=== PATIENT | female | born 2000 | race Caucasian/White ===

== ENCOUNTER 2020-12-16 00:40 | Emergency (ER) | payer OTHER ==
[2020-12-16 03:00] LABS: HEMOGLOBIN 11.8 gm/dl (12.3-15.3); RED BLOOD COUNT 4.09 M/UL (4.00-5.10); WHITE BLOOD COUNT 12.1 K/UL (4.5-11.0)
[2020-12-16 03:15] LABS: BUN/CREATININE RATIO 16 (0-10)
[2020-12-16] MEDS ORDERED: DULCOLAX5 MG PO (05:57)
[2020-12-16] MEDS ORDERED: AUGMENTIN 875-1 EACH PO (05:57)
[2020-12-16] MEDS ORDERED: FLAGYL500 MG PO (05:57)
== END 2020-12-16 06:40 | disposition home or self-care (01) ==
LOC: ER1 00:40
PROVIDERS: Physician Assistant
DX: K52.9 Noninfective gastroenteritis and colitis, unspecified (principal); F41.9 Anxiety disorder, unspecified; K21.9 Gastro-esophageal reflux disease without esophagitis; K59.00 Constipation, unspecified; N83.201 Unspecified ovarian cyst, right side; K62.5 Hemorrhage of anus and rectum; F17.200 Nicotine dependence, unspecified, uncomplicated; Z79.899 Other long term (current) drug therapy
CPT/HCPCS: 80053; 81001; 83690; 84703; 85025; 96374; 99284; J1885; J7030; Q9967

== ENCOUNTER 2021-04-27 22:35 | Emergency (ER) | payer OTHER ==
[~2021-04-27 22:35] MED LIST: AUGMENTIN 875-1 EACH PO; DULCOLAX5 MG PO; FLAGYL500 MG PO
[2021-04-28 00:28] LABS: HEMOGLOBIN 13.3 gm/dl (12.3-15.3); RED BLOOD COUNT 4.67 M/UL (4.00-5.10); WHITE BLOOD COUNT 16.5 K/UL (4.5-11.0)
[2021-04-28 00:31] LABS: BUN/CREATININE RATIO 11 (0-10)
[2021-04-28] MEDS ORDERED: ZOFRAN ODT 4 MG4 MG SL (04:25)
[2021-04-28] MEDS ORDERED: AUGMENTIN 875-1 EACH PO (04:25)
[2021-04-28] MEDS ORDERED: BENTYL 10MG CAP10 MG PO (04:25)
[2021-04-28] MEDS ORDERED: PROTONIX40 MG PO (04:25)
[2021-04-29 22:09] LABS: CHLAMYDIA TRACHOMATIS, NAA Negative (Negative); NEISSERIA GONORRHOEAE, NAA Negative (Negative)
== END 2021-04-28 05:36 | disposition home or self-care (01) ==
LOC: ER1 22:35
PROVIDERS: Physician Assistant
DX: K52.9 Noninfective gastroenteritis and colitis, unspecified (principal); F17.290 Nicotine dependence, other tobacco product, uncomplicated; Z20.822 Contact with and (suspected) exposure to COVID-19
CPT/HCPCS: 80053; 81001; 83605; 83690; 83735; 84703; 85025; 85610; 85730; 86850; 86900; 86901; 99284; Q9967; U0002

== ENCOUNTER 2021-05-03 10:37 | Emergency (ER) | payer OTHER ==
[~2021-05-03 10:37] MED LIST changes: +BENTYL 10MG CAP10 MG PO; +PROTONIX40 MG PO; +ZOFRAN ODT 4 MG4 MG SL
[2021-05-03 12:34] LABS: HEMOGLOBIN 12.7 gm/dl (12.3-15.3); RED BLOOD COUNT 4.44 M/UL (4.00-5.10); WHITE BLOOD COUNT 8.8 K/UL (4.5-11.0)
[2021-05-03 12:51] LABS: BUN/CREATININE RATIO 7 (0-10)
[2021-05-03] MEDS ORDERED: TORADOL 10 MG T10 MG PO (17:05)
[2021-05-03] MEDS ORDERED: ONDANSETRON ODT4 MG SL (17:05)
== END 2021-05-03 17:32 | disposition home or self-care (01) ==
LOC: ER1 10:37
PROVIDERS: Physician Assistant
DX: N83.8 Other noninflammatory disorders of ovary, fallopian tube and broad ligament (principal); K52.9 Noninfective gastroenteritis and colitis, unspecified; K21.9 Gastro-esophageal reflux disease without esophagitis; J45.909 Unspecified asthma, uncomplicated; F17.290 Nicotine dependence, other tobacco product, uncomplicated
CPT/HCPCS: 76830; 80053; 81001; 84703; 85025; 96374; 96375; 99284; J1885; J2405

== ENCOUNTER 2021-10-03 17:59 | Emergency (ER) | payer OTHER ==
[~2021-10-03 17:59] MED LIST changes: +ONDANSETRON ODT4 MG SL; +TORADOL 10 MG T10 MG PO
== END 2021-10-03 20:47 | disposition home or self-care (01) ==
LOC: ER1 17:59
DX: S63.501A Unspecified sprain of right wrist, initial encounter (principal); W54.1XXA Struck by dog, initial encounter
CPT/HCPCS: 29125; 73110; 99283